=== PATIENT | male | born 1960 | race African-American/Black ===

== ENCOUNTER → 2024-03-11 11:18 | Outpatient (REF) | payer OTHER, SELFPAY | LOC: RAD 11:18 | PROVIDERS: ATTENDING PHYSICIAN Family Medicine | DX: M54.2 Cervicalgia (principal); R06.02 Shortness of breath | CPT/HCPCS: 71046; 72052 ==

== ENCOUNTER 2024-03-26 07:01 | Emergency (ER) | payer OTHER, SELFPAY ==
[2024-03-26 07:06] VITALS: BP 143/110
[2024-03-26 07:41] VITALS: BMI 26.3
--- NOTE | 2024-03-26 07:45 | ED.GENMED ---
History of Present Illness
General
Chief Complaint: Musculo-Skeletal Complaint
Source: patient
Time Seen by Provider: 03/26/24 07:16
Travel History
Have you had any contact with someone who has COVID-19?: No
Do you have any symptoms of coronavirus? Fever > 100 degrees, chills, cough, shortness of breath, sore throat, loss of taste or smell, muscle aches, or headache?: No
History of Present Illness
History of Present Illness:
63-year-old male presents to the emergency room of back discomfort. Patient states that over the past several weeks he has been experiencing discomfort and stiffness in his neck. This occurs particularly when he is bent over and then has to raise
his head up. He also notes that he occasionally feels dizzy when he bends over. No focal weakness. No nausea or vomiting. Denies any chest pain or shortness of breath. He was evaluated by his primary care provider and had some blood work and
x-rays performed of his chest and neck which showed no acute abnormalities. Patient took some time off work and patient also went to physical therapy. He felt a little better with physical therapy but since he has returned to work he feels that he
is still limited in his ability to perform his tasks. 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 With his current state he does not feel
he can do that.
Past History
Past History
ED Past Medical History: HTN and Other (Kidney stones)
ED Past Surgical History: None
Social History
Tobacco: Non-smoker
Alcohol: None
Drug: None
Personal:
Living: with family
Employment: Employed
Family History
Family History: Other (Noncontributory)
Phy Exam
Physical Exam
Physical Exam:
General: Awake, Alert, Oriented X3. No acute distress.
Vitals: unremarkable
Head: Atraumatic
Eyes: Pupils equal, EOMI
Throat: Airway intact, no exudates
Neck: Trachea midline, no tenderness palpation over the bony spine, no significant paraspinal muscular tenderness
Lungs: Clear and equal b/l
Heart: Regular rate, no murmurs
Abd: Soft, Nontender, No pulsatile mass
Neuro: Cranial nerves intact, muscle strength equal bilaterally, cerebellar exam normal
Skin: Warm, dry, no rash
Extremities: pulses equal b/l, no edema
Course
Vital Signs
Initial and Last Documented VS:
Initial Vital Signs
Temp Pulse Resp BP Pulse Ox
98.2 F 90 20 143/110 99
03/26/24 07:06 03/26/24 07:06 03/26/24 07:06 03/26/24 07:06 03/26/24 07:06
Last Documented Vital Signs
Temp Pulse Resp BP Pulse Ox
98.2 F 90 20 143/110 99
03/26/24 07:06 03/26/24 07:06 03/26/24 07:06 03/26/24 07:06 03/26/24 07:06
MDM/Problems Addressed
Differential Diagnosis Includes:
Cervical spasm, cervical disc disease,
MDM/Problems Addressed:
Patient has a reassuring physical exam. There is no evidence for any serious or unstable process. During my evaluation the patient was able to move his head and neck. Extensive range of motion as he was demonstrating the things he needs to do at
work. He has no evidence of vertigo. Outpatient lab work and imaging reviewed. He had fairly extensive testing including TSH, Lyme, chemistries and CBC which were all reassuring. Chest x-ray was no acute disease. Cervical spine x-ray showed
some degenerative changes but no acute abnormality. Does not appear to be any further testing required in the emergency room to exclude a unstable process. I will add Skelaxin to see if this helps with his symptoms. Patient may require further
imaging in the form of an MRI this could be performed as an outpatient through his primary care provider.
*Critical Care Note
Total Time (30-74mins, 75-104mins- exclusive of procedures): Not Applicable
ED Attending Note
-
Portions of this chart may have been created with voice recognition software.� Occasional wrong word or��sound alike� substitutions may have occurred due to the inherent limitations of voice recognition software.
Discharge Plan
Departure
Patient Disposition: Home (Routine Discharge)
Date of Disposition: 03/26/24
Time of Disposition: 07:51
Patient with high blood pressure during this ER visit?: Yes
Condition: Good
Discharge Problem:
Neck and shoulder pain
Instructions: Chronic Neck Pain (DC)
Prescriptions:
New
metaxalone 800 mg tablet
800 mg PO TID PRN (Reason: muscle pain) Qty: 20 0RF
No Action
enalapril maleate 10 MG tablet
10 mg PO DAILY
hydrochlorothiazide 25 MG tablet
25 mg PO DAILY
acetaminophen-codeine 1 TABLET tablet
1 tab PO Q4HPRN PRN (Reason: pain) Qty: 9 0RF
tamsulosin 0.4 MG capsule
0.4 mg PO DAILY Qty: 7 0RF
Referrals:
Jaime Bernal MD [Family Provider] -
Stand Alone Forms: Return to Work
Interventions
Interventions:
*Risk Screen - Suicide Last Done: 03/26/24 07:41
*General Assessment Last Done: 03/26/24 07:41
*Neglect/Abuse Screening Last Done: 03/26/24 07:41
ED- Fall Risk Assessment Last Done: 03/26/24 07:41
*ED COVID-19 Vaccine History Last Done: 03/26/24 07:41
*Nursing Disposition Last Done: 03/26/24 08:04
ED-Musculoskeletal Assessment Last Done: 03/26/24 07:41
Discharge Date and Time
Discharge Date/Time: 03/26/24 08:05
Print Language: ROMANSH
== END 2024-03-26 08:05 | disposition home or self-care (01) ==
LOC: EMR 07:01
PROVIDERS: EMERGENCY PHYSICIAN Emergency Medicine; FAMILY PHYSICIAN Family Medicine
DX: M54.2 Cervicalgia (principal); M25.519 Pain in unspecified shoulder; M47.812 Spondylosis without myelopathy or radiculopathy, cervical region; I10 Essential (primary) hypertension; N40.0 Benign prostatic hyperplasia without lower urinary tract symptoms; Z87.442 Personal history of urinary calculi
CPT/HCPCS: 99283

== ENCOUNTER → 2024-03-28 15:23 | Outpatient (REF) | payer OTHER, SELFPAY | LOC: HWRAD 15:23 | PROVIDERS: ATTENDING PHYSICIAN Family Medicine | DX: R51.9 Headache, unspecified (principal); M54.2 Cervicalgia; R42 Dizziness and giddiness | CPT/HCPCS: 70450 ==